=== PATIENT | female | born 1945 | race Caucasian/White ===

== ENCOUNTER → 2017-09-27 16:54 | Outpatient (CLI) | payer OTHER ==
[~2017-09-27 16:54] MED LIST: ATACAND4 MG; BACTROBAN OINT22 GM TP; CATAFLAM50 MG PO; CLEOCIN T60 GM; DIABETA1.25 MG; VALTREX1000 MG; ZOCOR5 MG
== END | disposition home or self-care (01) ==
LOC: RAD 16:54
DX: M1A.00X0 Idiopathic chronic gout, unspecified site, without tophus (tophi) (principal)

== ENCOUNTER 2017-11-02 12:35 | Outpatient (CLI) | payer OTHER | END 2017-11-02 15:52 | disposition home or self-care (01) | LOC: SONOGRAMA 12:35 | DX: M10.9 Gout, unspecified (principal) ==

== ENCOUNTER 2017-12-07 13:03 | Outpatient (CLI) | payer OTHER | END 2017-12-07 14:00 | disposition home or self-care (01) | LOC: NUCLEAR 13:03 | DX: M81.0 Age-related osteoporosis without current pathological fracture (principal) ==

== ENCOUNTER 2017-12-31 07:10 | Outpatient (CLI) | payer OTHER | END 2017-12-31 07:14 | disposition home or self-care (01) | LOC: NUCLEAR 07:10 | DX: I20.0 Unstable angina (principal); E78.2 Mixed hyperlipidemia; E11.8 Type 2 diabetes mellitus with unspecified complications; I11.9 Hypertensive heart disease without heart failure | CPT/HCPCS: 78452; 93017; A9500 ==

== ENCOUNTER → 2019-01-29 | Outpatient (CLI) | payer OTHER | END | disposition home or self-care (01) | LOC: RAD 15:57 | DX: M25.561 Pain in right knee (principal); M25.562 Pain in left knee ==

== ENCOUNTER → 2020-05-14 | Outpatient (CLI) | payer OTHER | END | disposition home or self-care (01) | LOC: RAD 10:33 | PROVIDERS: ATTEND Internal Medicine Rheumatology | DX: G35 Multiple sclerosis (principal); M16.0 Bilateral primary osteoarthritis of hip ==

== ENCOUNTER 2020-05-17 14:16 | Outpatient (CLI) | payer OTHER | END 2020-05-17 14:19 | disposition home or self-care (01) | LOC: RAD 14:16 | PROVIDERS: ATTEND Orthopaedic Surgery | DX: M25.562 Pain in left knee (principal); M25.561 Pain in right knee ==

== ENCOUNTER → 2020-06-09 | Outpatient (CLI) | payer OTHER | END | disposition home or self-care (01) | LOC: RAD 15:15 | PROVIDERS: ATTEND Physical Medicine & Rehabilitation | DX: M47.892 Other spondylosis, cervical region (principal); M54.2 Cervicalgia; G56.22 Lesion of ulnar nerve, left upper limb; M77.8 Other enthesopathies, not elsewhere classified ==

== ENCOUNTER 2020-09-02 13:02 | Outpatient (CLI) | payer OTHER | END 2020-09-02 13:23 | disposition home or self-care (01) | LOC: NUCLEAR 13:02 | PROVIDERS: ATTEND Orthopaedic Surgery | DX: M81.0 Age-related osteoporosis without current pathological fracture (principal) ==

== ENCOUNTER 2021-12-28 14:23 | Outpatient (CLI) | payer OTHER | END 2021-12-28 14:27 | disposition home or self-care (01) | LOC: RAD 14:23 | PROVIDERS: ATTEND Physical Medicine & Rehabilitation | DX: M54.50 Low back pain, unspecified (principal); M19.041 Primary osteoarthritis, right hand; S92.911A Unspecified fracture of right toe(s), initial encounter for closed fracture; S92.912A Unspecified fracture of left toe(s), initial encounter for closed fracture ==

== ENCOUNTER 2022-03-07 14:13 | Outpatient (CLI) | payer OTHER | END 2022-03-07 14:24 | disposition home or self-care (01) | LOC: SONOGRAMA 14:13 | PROVIDERS: ATTEND Specialist | DX: N20.0 Calculus of kidney (principal) ==